=== PATIENT | female | born 1955 | race Caucasian/White ===

== ENCOUNTER 2017-04-28 07:03 | Day surgery (SDC) | payer BC ==
[2017-04-26 13:24] VITALS: BMI 33.5
[2017-04-28] MEDS ORDERED: MIDAZOLAM HCL 2 MG/2 ML SINGLE DOSE VIAL ONE (11:59)
[2017-04-28] MEDS ORDERED: PROPOFOL 20 ML ONE ×2 (11:59)
[2017-04-28] MEDS ORDERED: DEXAMETHASONE SOD PHOSPHATE 4 MG/1 ML VIAL ONE (12:01)
[2017-04-28] MEDS ORDERED: ONDANSETRON 4 MG/2 ML VIAL ONE (12:01)
[2017-04-28] MEDS ORDERED: BUPIVACAINE HCL/PF 2.5 MG/ML - 30 ML VIAL IJ ONE (12:31)
[2017-04-28] MEDS ORDERED: ceFAZolin SODIUM 1 GM VIAL ONE (12:59)
[2017-04-28] MEDS ORDERED: BUPIVACAINE HCL/PF 0.25% (2.5MG/ML) 10 ML VIAL IJ ONE (13:28)
[2017-04-28 13:55] VITALS: TEMP 98
[2017-04-28] MEDS ORDERED: ONDANSETRON 4 MG/2 ML VIAL IVPUSH PRN (14:32)
[2017-04-28] MEDS ORDERED: oxyCODONE HCL 5 MG TABLET PO PRN ×2 (14:32)
[2017-04-28] MEDS ORDERED: LACTATED RINGERS SOLUTION 1,000 ML IV SCH (14:45)
[2017-04-28 15:35] VITALS: BP 117/68; PULSE 64
[2017-04-28] MEDS ORDERED: LIDOCAINE HCL 2% (20ML MULTI-DOSE VIAL) NR ONE (15:35)
--- NOTE | 2017-04-30 17:54 | OP ---
DATE OF OPERATION: 04/28/2017 LOCATION: [facility]. SURGEON: Dioni Alvarado MD DATA SPECIALIST: MICHELLE Virk PREOPERATIVE DIAGNOSES 1. Right knee medial and lateral meniscal tear. 2. Right knee cartilage injury. 3. Right knee synovitis. POSTOPERATIVE DIAGNOSES: 1. Right knee medial and lateral meniscal tear. 2. Right knee cartilage injury. 3. Right knee synovitis. PROCEDURE: 1. Right knee arthroscopy with partial meniscectomy, medial and lateral meniscus. 2. Right knee arthroscopy with chondroplasty and abrasion-plasty. 3. Right knee arthroscopy with synovectomy. FINDINGS: 1. Medial meniscus body and posterior horn tear. 2. Lateral meniscus posterior horn tear. 3. Synovitis, patellofemoral, medial and lateral notch area. 4. Central grade 3 to 4 cartilage injury, medial femoral condyle. 5. ACL and PCL intact. 6. Diffuse grade 1 to 2 cartilage injury, lateral tibial plateau and femoral condyle with central grade 3 changes, lateral tibial plateau. 7. Central grade 2 changes, patella, with grade 2 to 4 changes of patellofemoral trochlea, large medial plica. PROCEDURE: Informed consent was obtained. The patient was taken to the operating room where the right lower extremity was prepped and draped in a sterile fashion. A tourniquet was placed on the right upper thigh but not inflated. Using standard arthroscopic technique, a lateral incision and portal were made which allowed for introduction of the camera into the suprapatellar bursa. This was then taken to the medial joint line where under direct visualization, a medial incision and portal were made. Excessive synovium noted in the medial, lateral, patellofemoral and notch area was removed by the up-biting shaver and Bovie cautery. This was found to bring inflammatory tissue into the joint surface, a source of joint pain and dysfunction. Probing of the medial and lateral meniscus found tears described in the findings. These were removed with an up-biting shaver and taken back to a stable rim. Grade 2-3 degenerative changes were treated with chondroplasty, removing all flaking surfaces with low setting Bovie used along the periphery. Grade 4 changes were treated with abrasion-plasty. All areas of the knee were once again re-examined. The knee was then drained. A single suture was placed on all portals. Sterile dressing was placed. The patient was transferred to the recovery room. DIONI ALVARADO M.D. [id number]
--- NOTE | 2017-05-02 16:14 | PATH ---
Surgical Pathology Report Patient Name: BRIAN RIOS Med. Rec. #: [id number] /Age/Gender: 1955 (Age: 61) / F Account: [id number] Location: [facility] AMBULATORY Taken: 04/28/2017 Received: 04/28/2017 Reported: 05/02/2017 Physicians: Pietro Aceves M.D. Specimen(s) Received RIGHT KNEE SHAVINGS Clinical History Right knee internal derangement Final Diagnosis KNEE, RIGHT, ARTHROSCOPIC SHAVINGS: FIBROSYNOVIAL TISSUE, CARTILAGE AND SCANT BONE. Electronically Signed Jess Tucker M.D. Gross Description Received in formalin, labeled "right knee shavings," is a 4.4 x 3.2 x 0.4 cm. aggregate of hodge-yellow soft tissue fragments. A paper sales representative portion is submitted in one cassette. 05/01/201705/01/2017
== END 2017-04-28 15:39 | disposition home or self-care (01) ==
LOC: FASU 07:03
PROVIDERS: ATTEND Orthopaedic Surgery
PROC: 0SBC4ZZ Excision of Right Knee Joint, Percutaneous Endoscopic Approach (ICD-10-PCS; 2017-04-28)
PROC: 0SBC4ZZ Excision of Right Knee Joint, Percutaneous Endoscopic Approach (ICD-10-PCS; 2017-04-28)
PROC: 0SBC4ZZ Excision of Right Knee Joint, Percutaneous Endoscopic Approach (ICD-10-PCS; principal; 2017-04-28 12:51)
DX: S83.241A Other tear of medial meniscus, current injury, right knee, initial encounter (principal); S83.281A Other tear of lateral meniscus, current injury, right knee, initial encounter; S83.8X1A Sprain of other specified parts of right knee, initial encounter; M65.861 Other synovitis and tenosynovitis, right lower leg; X58.XXXA Exposure to other specified factors, initial encounter; Y93.9 Activity, unspecified; Y92.9 Unspecified place or not applicable
CPT/HCPCS: 88304-TC; 94760